=== PATIENT | male | born 1965 | race Caucasian/White ===

== ENCOUNTER 2021-10-22 21:45 | Emergency (ER) | payer OTHER ==
[~2021-10-22] VITALS: Ht 180.3 cm; Wt 102.1 kg
[2021-10-22 22:19] LABS: BASOPHILS 0.4 % (0.0-2.0); EOSINOPHILS 1.4 % (0.0-3.0); HEMATOCRIT 45.6 % (42.0-52.0); HEMOGLOBIN 15.5 gm/dL (14.0-18.0); LYMPHOCYTES 39.6 % (24.0-44.0); MCH 30.1 pg (26.0-34.0); MCHC 33.9 g/dL (28.0-37.0); MCV 88.8 fL (80.0-100.0); MONOCYTES 20.3 % (1.0-8.0); PLATELET COUNT 212 thou/uL (150-400); POLYS 38.3 % (36.0-66.0); RBC 5.14 mil/uL (4.50-6.00); RDW 12.9 % (10.5-14.5); WBC 7.8 thou/uL (4.0-11.0)
[2021-10-22 22:28] LABS: CALCIUM 8.1 mg/dL (8.5-10.1)
[2021-10-22 22:38] LABS: ALBUMIN 3.2 g/dL (3.4-5.0); TOTAL BILIRUBIN 0.4 mg/dL (0.2-1.0); TOTAL PROTEIN 6.9 g/dL (6.4-8.2)
[2021-10-23] MEDS ORDERED: AUGMENTIN 875-1 EACH PO (02:39)
[2021-10-23 03:01] VITALS: BP 91/65
--- NOTE | 2021-10-23 10:57 | EKG ---
[address] [address] ELECTROCARDIOGRAM REPORT Name: FER CEE Room [id number] Admission: 10/22/21 Attend Phys: Discharge: 10/23/21 Date of : 69 Report #: [id number] [facility] ED Test Date: 2021-10-22 Test Time: 21:50:57 Pat Name: FER CEE Department: Room: Gender: Director Of Casework Department: : 1965 Requested By: Royce Sharma Order Number: [id number] MD: Amado Mata Measurements Intervals Success Rate: 87 P: 43 MN: 149 QRS: 59 QRSD: 92 T: 33 QT: 348 QTc: 419 Interpretive Statements Sinus rhythm No previous ECG available for comparison Electronically Signed On 10-23-2021 10:57:01 [employer] by Amado Mata [email or web address] <ELECTRONICALLY SIGNED> By: Amado Mata MD 10/23/21 1057 2150 2150 Amado Mata MD /EPI
== END 2021-10-23 03:02 | disposition home or self-care (01) ==
LOC: ER 21:45
PROVIDERS: Emergency Medicine
DX: R07.89 Other chest pain (principal); R06.02 Shortness of breath; R51.9 Headache, unspecified